=== PATIENT | female | born 1970 | race Caucasian/White ===

== ENCOUNTER 2017-01-05 17:46 | Emergency (ER) | payer SELFPAY ==
--- NOTE | 2017-01-05 20:45 | RAD ---
THREE VIEWS FOURTH DIGIT LEFT HAND 01/05/17 HISTORY: Crushing injury by 60 lb cutting board. AP, lateral and oblique views fourth digit left hand obtained. No evidence of fourth digit fractures or subluxations or bony lesions seen. IMPRESSION: No evidence of fourth digit fractures. POS: [facility]
== END 2017-01-05 19:06 | disposition home or self-care (01) ==
LOC: NAV ERS 17:46
DX: S67.193A Crushing injury of left middle finger, initial encounter (principal); M19.90 Unspecified osteoarthritis, unspecified site; J42 Unspecified chronic bronchitis; M41.9 Scoliosis, unspecified; M47.9 Spondylosis, unspecified; Z86.19 Personal history of other infectious and parasitic diseases; F41.9 Anxiety disorder, unspecified; F32.9 Major depressive disorder, single episode, unspecified; F43.10 Post-traumatic stress disorder, unspecified; F17.210 Nicotine dependence, cigarettes, uncomplicated; W20.8XXA Other cause of strike by thrown, projected or falling object, initial encounter; Y92.69 Other specified industrial and construction area as the place of occurrence of the external cause; Y99.0 Civilian activity done for income or pay; Z79.899 Other long term (current) drug therapy

== ENCOUNTER 2019-06-10 02:30 | Emergency (ER) | payer BC, SELFPAY ==
[2019-06-10] MEDS ORDERED: Ketorolac Tromethamine 60 MG/2 ML VIAL ONE (03:23)
--- NOTE | 2019-06-10 08:04 | RAD ---
EXAM: XR Ribs Rt>=2 view STANDARD PROVIDED CLINICAL HISTORY: Pain beneath right breast after injury. COMPARISON: Chest x-ray on 04/03/2013. FINDINGS: The cardiac silhouette and pulmonary vasculature are within normal limits. The lungs are clear. No pn eumothorax or pleural effusion is seen on this study. Previously noted tiny left apical pneumothorax as well as left pleural effusion have resolved. The osseous structures are intact. No ri ght-sided rib fracture is visualized. No other interval change. IMPRESSION: 1. No acute cardiopulmonary process. 2. No evidence of a right-sided rib fracture.
== END 2019-06-10 03:29 | disposition home or self-care (01) ==
LOC: NAV ERS 02:30
DX: S23.41XA Sprain of ribs, initial encounter (principal); M19.90 Unspecified osteoarthritis, unspecified site; F41.9 Anxiety disorder, unspecified; F32.9 Major depressive disorder, single episode, unspecified; F43.10 Post-traumatic stress disorder, unspecified; Z79.899 Other long term (current) drug therapy; W01.190A Fall on same level from slipping, tripping and stumbling with subsequent striking against furniture, initial encounter
CPT/HCPCS: 96372; J1885